=== PATIENT | female | born 1930 | race African-American/Black ===

== ENCOUNTER 2017-08-23 16:35 | Observation (INO) ==
--- NOTE | 2017-08-23 16:57 | ED ---
HPI General Chief Complaint: Chest Pain Stated Complaint: Chest pain Time Seen by Provider: 08/23/17 16:44 Source: patient Mode of arrival: EMS Limitations: no limitations History of Present Illness HPI narrative: The patient is a 86-year-old female who presents to the emergency department from her physician's office, [place] [facility] , for chest pain. The patient states she was awakened this morning, unknown time, with chest pain. The chest pain is left-sided, radiates to the left jaw and down the left arm, described as pressure, with diaphoresis. The patient denied any shortness of breath, nausea, or vomiting. The patient does have a history of hypertension and hyperlipidemia. She denies any known history of coronary artery disease use, or early family medical history for heart disease. The patient's symptoms are moderate. 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 The patient took the bus to her physician's office, was evaluated and had an EKG performed. The patient was then administered 2 nitroglycerin sublingual and had a nitro patch applied to the left chest wall which resolved her pain. Upon arrival she is chest pain-free. The patient states aspirin irritates her stomach, however, she does not have a true allergy to aspirin. MD complaint: chest pain Complete Quality Measures for STEMI Alert Patients STEMI Alert: No Onset (ago): hour(s) Duration: constant Onset: during rest and during exertion Pain location: left chest Severity: moderate Severity scale (1-10): 5 Quality: heaviness Pain radiation: neck Relieving factors: nitroglycerin Exacerbating factors: nothing Associated symptoms: diaphoresis Treatments prior to arrival chest pain: nitroglycerin Related Data On Oral Contraceptives: No Home Medications Medication Instructions Recorded Confirmed amlodipine [Norvasc] 10 mg PO DAILY 08/23/17 08/23/17 hydrochlorothiazide 25 mg PO DAILY 08/23/17 08/23/17 pantoprazole 20 mg PO DAILY 08/23/17 08/23/17 rosuvastatin [Crestor] 20 mg PO HS 08/23/17 08/23/17 Allergies Allergy/AdvReac Type Severity Reaction Status Date / Time No Known Allergies Allergy Uncoded 01/20/16 13:47 Review of Systems Except as stated in HPI: all other systems reviewed are negative ENT Denies dizziness Cardiovascular Reports chest pain, Reports chest pain at rest, Reports chest pain with activity , Reports diaphoresis, Denies lightheadedness and Denies dyspnea Respiratory Denies cough and Denies dyspnea Gastrointestinal Denies abdominal pain, Denies nausea and Denies vomiting [facility] Medical History Medical History Acute arthritis (Acute) H/O: hysterectomy (Acute) Hyperlipidemia (Acute) Hypertension (Acute) Social History Social History Substance History: No History of Abuse Smoking Status: Former smoker Tobacco Type: Smokeless Tobacco How Often Do You Have a Drink Containing Alcohol: Never Recent Travel in [facility] within the Last 8 Weeks: No Recent Out of Country Travel within the Last 8 Weeks: No Exam Narrative Exam Narrative: GENERAL: Awake, alert, very pleasant 86-year-old female who appears her stated age and is in no acute respiratory distress. SKIN: Focused skin assessment warm/dry. HEAD: Atraumatic. Normocephalic. EYES: No injection or drainage. ENT: No nasal bleeding or discharge. Mucous membranes pink and moist. NECK: Trachea midline. No JVD. CARDIOVASCULAR: Regular rate and rhythm. No murmur appreciated. Patient has a nitro patch applied to left chest wall. Palpation of the surrounding area does not reproduce symptoms. RESPIRATORY: No accessory muscle use. Clear to auscultation. Breath sounds equal bilaterally. GASTROINTESTINAL: Abdomen soft, non-tender, nondistended. No rebound tenderness , guarding, rigidity. No epigastric tenderness noted. MUSCULOSKELETAL: No obvious deformities. No clubbing. No cyanosis. No edema. NEUROLOGICAL: Awake and alert. No obvious cranial nerve deficits. Motor grossly within normal limits. Normal speech. Nonfocal. PSYCHIATRIC: Appropriate mood and affect; insight and judgment normal. Course Initial Documented Vital Signs Temperature 98.1 F 08/23/17 16:44 Pulse Rate 85 08/23/17 16:44 Respiratory Rate 18 08/23/17 16:44 Blood Pressure 173/82 H 08/23/17 16:44 Pulse Oximetry 97 08/23/17 16:44 Last Documented Vital Signs Temperature 98.1 F 08/23/17 16:44 Pulse Rate 76 08/23/17 16:49 Respiratory Rate 17 08/23/17 16:49 Blood Pressure 147/66 H 08/23/17 16:49 Pulse Oximetry 96 08/23/17 16:50 Medical Decision Making MDM Narrative Medical decision making narrative: IV was established, labs are drawn and sent, and the patient was placed on cardiac telemetry monitoring and continuous pulse oximetry monitoring. EKG was ordered and interpreted. Chest x-ray was obtained. The patient was administered aspirin 162 mg orally. The patient is chest pain-free and already has a nitro patch applied, therefore, no Nitropaste was applied. The patient's chest x-ray is unremarkable. Initial troponin is less than 0.02. The patient will be a 23 hour observation to the chest pain center for serial cardiac enzymes and further evaluation by cardiology for possible stress test. The patient is comfortable with this plan of care and disposition. Differential Diagnosis Differential Diagnosis: Differential diagnosis includes acute coronary syndrome , STEMI, costochondritis, pericarditis, myocarditis, dissection, GERD, esophageal spasm, pulmonary embolism. Lab Data Lab results narrative: The patient's initial troponin is less than 0.02. Result diagrams: 08/23/17 16:55 08/23/17 16:55 Lab Results 08/23/17 08/23/17 08/23/17 Range/Units 16:55 16:55 16:55 WBC 8.9 (4.0-11.0) th/mm3 RBC 4.80 (4.00-5.30) mil/mm3 Hgb 12.2 (11.6-15.3) gm/dL Hct 37.2 (35.0-46.0) % MCV 77.5 L (80.0-100.0) fL MCH 25.4 L (27.0-34.0) pg MCHC 32.7 (32.0-36.0) % RDW 14.4 (11.6-17.2) % Plt Count 332 (150-450) th/mm3 MPV 8.5 (7.0-11.0) fL Neut % (Auto) 63.3 (16.0-70.0) % Lymph % (Auto) 26.5 (9.0-44.0) % Graham % (Auto) 7.8 (0.0-8.0) % Eos % (Auto) 1.8 (0.0-4.0) % Baso % (Auto) 0.6 (0.0-2.0) % Neut # (Auto) 5.7 (1.8-7.7) th/mm3 Lymph # (Auto) 2.4 (1.0-4.8) th/mm3 Graham # (Auto) 0.7 (0.0-0.9) th/mm3 Eos # (Auto) 0.2 (0.0-0.4) th/mm3 Baso # (Auto) 0.1 (0.0-0.2) th/mm3 WBC Differential . Differential Comment Auto diff final PT (9.8-11.6) sec INR Ratio APTT (24.3-30.1) sec Sodium (136-145) meq/L Potassium (3.5-5.1) meq/L Chloride (98-107) meq/L Carbon Dioxide (21.0-32.0) meq/L Anion Gap (5-15) meq/L BUN (7-18) mg/dL Creatinine (0.50-1.00) mg/dL Estimated GFR (>89) mL/min Random Glucose (74-106) mg/dL Calcium (8.5-10.1) mg/dL Magnesium (1.5-2.5) mg/dL Total Bilirubin (0.2-1.0) mg/dL AST (15-37) U/L ALT (10-53) U/L Alkaline Phosphatase (45-117) U/L Total Creatine Kinase (26-192) U/L Troponin I (0.02-0.05) ng/mL B-Natriuretic Peptide 32 (0-100) pg/mL Total Protein (6.4-8.2) g/dL Albumin (3.4-5.0) g/dL Lipase 91 (73-393) U/L 08/23/17 08/23/17 Range/Units 16:55 16:55 WBC (4.0-11.0) th/mm3 RBC (4.00-5.30) mil/mm3 Hgb (11.6-15.3) gm/dL Hct (35.0-46.0) % MCV (80.0-100.0) fL MCH (27.0-34.0) pg MCHC (32.0-36.0) % RDW (11.6-17.2) % Plt Count (150-450) th/mm3 MPV (7.0-11.0) fL Neut % (Auto) (16.0-70.0) % Lymph % (Auto) (9.0-44.0) % Graham % (Auto) (0.0-8.0) % Eos % (Auto) (0.0-4.0) % Baso % (Auto) (0.0-2.0) % Neut # (Auto) (1.8-7.7) th/mm3 Lymph # (Auto) (1.0-4.8) th/mm3 Graham # (Auto) (0.0-0.9) th/mm3 Eos # (Auto) (0.0-0.4) th/mm3 Baso # (Auto) (0.0-0.2) th/mm3 WBC Differential Differential Comment PT 10.4 (9.8-11.6) sec INR 1.0 Ratio APTT 26.1 (24.3-30.1) sec Sodium 142 (136-145) meq/L Potassium 4.0 (3.5-5.1) meq/L Chloride 110 H (98-107) meq/L Carbon Dioxide 21.6 (21.0-32.0) meq/L Anion Gap 10 (5-15) meq/L BUN 18 (7-18) mg/dL Creatinine 0.93 (0.50-1.00) mg/dL Estimated GFR 69 L (>89) mL/min Random Glucose 73 L (74-106) mg/dL Calcium 8.7 (8.5-10.1) mg/dL Magnesium 2.0 (1.5-2.5) mg/dL Total Bilirubin 0.5 (0.2-1.0) mg/dL AST 26 (15-37) U/L ALT 26 (10-53) U/L Alkaline Phosphatase 86 (45-117) U/L Total Creatine Kinase 160 (26-192) U/L Troponin I Less than 0.02 L (0.02-0.05) ng/mL B-Natriuretic Peptide (0-100) pg/mL Total Protein 7.9 (6.4-8.2) g/dL Albumin 3.6 (3.4-5.0) g/dL Lipase (73-393) U/L Imaging Data Radiologist's impression: ITS Impressions Chest X-Ray 08/23/17 16:45 CONCLUSION: No acute cardiopulmonary process. ECG Data EKG Prior to Arrival: Yes Attestation: I personally reviewed and interpreted this ECG as follows: Interpretation: EKG reveals normal sinus rhythm with a rate of 75. No ischemic changes or ectopy noted. Discharge Plan Discharge Disposition Patient Disposition: 30 Still Patient Discharge Condition Condition: Stable Discharge Details Diagnosis: Chest pain Physicians Team ED Provider: Shawn Vega Primary Care Provider: UNKNOWN, Rxs /Orders / Referrals /Forms Prescriptions: No Action pantoprazole 20 mg Tablet,Delayed Release (Dr/Ec) 20 mg PO DAILY RF: 0 amlodipine [Norvasc] 10 mg Tablet 10 mg PO DAILY RF: 0 hydrochlorothiazide 25 mg Tablet 25 mg PO DAILY RF: 0 rosuvastatin [Crestor] 20 mg Tablet 20 mg PO HS RF: 0 Discharge Instructions Patient Printed Instructions: Chest Pain (ED) Discharge Interventions Interventions: Vital Signs Last Done: 08/23/17 16:49 Status ED Status: With Doctor
[2017-08-23 17:23] LABS: Baso # (Auto) 0.1 th/mm3 (0.0-0.2); Baso % (Auto) 0.6 % (0.0-2.0); Eos # (Auto) 0.2 th/mm3 (0.0-0.4); Eos % (Auto) 1.8 % (0.0-4.0); Hematocrit 37.2 % (35.0-46.0); Hemoglobin 12.2 gm/dL (11.6-15.3); Lymph # (Auto) 2.4 th/mm3 (1.0-4.8); Lymph % (Auto) 26.5 % (9.0-44.0); Mean Corpuscular HGB Conc 32.7 % (32.0-36.0); Mean Corpuscular Hemoglobin 25.4 pg (27.0-34.0); Mean Corpuscular Volume 77.5 fL (80.0-100.0); Mean Platelet Volume 8.5 fL (7.0-11.0); Mono # (Auto) 0.7 th/mm3 (0.0-0.9); Mono % (Auto) 7.8 % (0.0-8.0); Neut # (Auto) 5.7 th/mm3 (1.8-7.7); Neut % (Auto) 63.3 % (16.0-70.0); Platelet Count 332 th/mm3 (150-450); Red Cell Distribution Width 14.4 % (11.6-17.2); White Blood Count 8.9 th/mm3 (4.0-11.0)
--- NOTE | 2017-08-23 17:24 | XR ---
EXAM DATE: 08/23/2017 5:19 PM EDT AGE/SEX: 86 years / Female INDICATIONS: Left sided chest pain. CLINICAL DATA: This is the patient's initial encounter. Patient reports that signs and symptoms have been present for 1 day and indicates a pain score of 6/10. MEDICAL/SURGICAL HISTORY: None. None. COMPARISON: [facility], CHEST PA & LAT, 06/05/2010. . FINDINGS: A single AP view of the chest demonstrates the lungs to be symmetrically aerated without evidence of mass, infiltrate or effusion. The cardiomediastinal contours are unremarkable. Osseous structures a re intact. CONCLUSION: No acute cardiopulmonary process. Electronically signed by: Johnnie Escobar MD 08/23/2017 5:23 PM EDT
[2017-08-23 17:44] LABS: Activated Partial Thrombo Time 26.1 sec (24.3-30.1); Prothrombin Time 10.4 sec (9.8-11.6)
[2017-08-23 18:13] LABS: Alanine Aminotransferase 26 U/L (10-53); Albumin 3.6 g/dL (3.4-5.0); Alkaline Phosphatase 86 U/L (45-117); Anion Gap 10 meq/L (5-15); Aspartate Aminotransferase 26 U/L (15-37); Blood Urea Nitrogen 18 mg/dL (7-18); Calcium 8.7 mg/dL (8.5-10.1); Carbon Dioxide 21.6 meq/L (21.0-32.0); Chloride 110 meq/L (98-107); Creatine Kinase 160 U/L (26-192); Glomerular Filtration Rate 69 mL/min (>89); Glucose,Random 73 mg/dL (74-106); Sodium 142 meq/L (136-145); Total Protein 7.9 g/dL (6.4-8.2)
[2017-08-23] MEDS ORDERED: Morphine Inj 4 MG/ML Vial IV.PUSH PRN (18:24)
[2017-08-23] MEDS ORDERED: Acetaminophen 500 MG Tablet PO PRN (18:24)
[2017-08-23 18:28] LABS: Creatine Kinase MB 2.4 ng/mL (0.5-3.6)
[2017-08-23 22:45] LABS: Creatine Kinase 190 U/L (26-192)
[2017-08-24] MEDS ORDERED: Aspirin 325 MG Tablet PO SCH (09:00)
--- NOTE | 2017-08-24 09:32 | P.HPCA ---
History of Present Illness Primary Care Physician: UNKNOWN Chief Complaint: Chest pain History of Present Illness: This is an 87-year-old female with history of hypertension, hyperlipidemia, and GERD the presents to ED after being evaluated at her PCP office for chest discomfort. States that began yesterday morning. Has a hard time describing how long it lasted but states is more than an hour. She was given sublingual nitroglycerin at the PCP office which resolved her discomfort. States the discomfort has not recurred. Denies history of CAD but cannot recall having a cardiac workup in the past. There was a left-sided discomfort that radiated to left jaw and into the left arm. Described as a pressure. She is also diaphoretic with the symptoms. Denies shortness of breath or nausea. Has not had symptoms like this in the past. Denies recent illness. Voices compliance with medication. Patient is a non-smoker. Denies family history of CAD. - Diagnosis (1) Chest pain (2) Hypertension (3) Hyperlipidemia (4) GERD (gastroesophageal reflux disease) Inpatient Certification: I certify that the inpatient services were ordered in accordance with Medicare regulations governing the order. This includes certification that hospital inpatient services are reasonable and necessary and in the case of services not specified as inpatient-only under 42 CFR 419.22(n), that they are appropriately provided as inpatient services in accordance to with the 2-midnight benchmark under 43 CFR 412.3(e) Review of Systems General: Patient denies fevers, chills, and recent travel. HEENT: Patient denies headache, sore throat, difficulty swallowing. Cardiovascular: Has the chest discomfort as mentioned above. Denies sensation of heart beating rapidly or irregularly. No syncope. She was diaphoretic. Respiratory: Denies shortness of breath or inspirational chest discomfort. Denies coughing wheezing or hemoptysis. GI: Patient denies nausea, vomiting, diarrhea, abdominal pain, bloody stools. Musculoskeletal: Patient denies joint pain or edema. Denies calf pain or edema. Neurovascular: Patient denies numbness, tingling, weakness in extremities. Denies headache. Endocrine: Denies polyuria and polydipsia. Hematologic: Denies easy bruising. Skin: Denies rash or itching. PMFSH - History History Provided By: Patient - Medical History Medical History: Medical History (Last Reviewed 08/24/17 @ 09:28 by KERA Ashraf) Acute arthritis H/O: hysterectomy Hyperlipidemia Hypertension - Tobacco History Second Hand Smoke Exposure: No Smoking Status: Never smoker Tobacco Type: Smokeless Tobacco - Alcohol History How Often Do You Have a Drink Containing Alcohol: Never - Substance Use History Substance History: No History of Abuse - Travel History Recent Travel in the [facility] Within the Last 8 Weeks: No Recent Travel Out of the Country Within the Last 8 Weeks: No - Immunization History Tetanus Immunization: <5 Years Medications and Allergies Active Medications: Active Medications Acetaminophen (Tylenol) 500 mg PO Q4H PRN PRN Reason: HEADACHE Aspirin (Aspirin) 325 mg PO DAILY [facility] Last Admin: 08/24/17 08:07 Dose: 325 mg Morphine Sulfate (Morphine Inj) 2 mg IV.PUSH Q4H PRN PRN Reason: PAIN SCALE 8 TO 10 Nitroglycerin (Nitrostat Sl) 0.4 mg SL Q5M PRN PRN Reason: CHEST PAIN Ondansetron HCl (Zofran Inj) 4 mg IV.PUSH Q6H PRN PRN Reason: NAUSEA Sodium Chloride (Ns Flush) 2 ml IV.FLUSH UNSCH PRN PRN Reason: FLUSH AFTER USING IV ACCESS Sodium Chloride (Ns Flush) 2 ml IV.FLUSH BID [facility] Last Admin: 08/24/17 08:08 Dose: 2 ml Sodium Chloride (Ns Flush) 2 ml IV.FLUSH PRN PRN PRN Reason: FLUSH AFTER USING IV ACCESS Allergies Allergy/AdvReac Type Severity Reaction Status Date / Time No Known Allergies Allergy Uncoded 01/20/16 13:47 Home Medications Medication Instructions Recorded Confirmed Type amlodipine [Norvasc] 10 mg PO DAILY 08/23/17 08/23/17 History hydrochlorothiazide 25 mg PO DAILY 08/23/17 08/23/17 History pantoprazole 20 mg PO DAILY 08/23/17 08/23/17 History rosuvastatin [Crestor] 20 mg PO HS 08/23/17 08/23/17 History Exam Vital signs: Vital Signs 08/23/17 16:44 08/23/17 16:49 08/23/17 16:50 Temperature 98.1 F Pulse Rate 85 76 Respiratory Rate 18 17 Blood Pressure 173/82 H 147/66 H Pulse Oximetry 97 97 96 08/23/17 18:00 08/23/17 18:52 08/23/17 20:00 Temperature 97.7 F Pulse Rate 63 73 Respiratory Rate 19 16 Blood Pressure 130/64 140/66 Pulse Oximetry 97 96 97 08/23/17 23:42 08/24/17 00:00 08/24/17 02:10 Temperature 97.1 F L Pulse Rate 74 55 L Respiratory Rate 20 Blood Pressure 122/56 L Pulse Oximetry 97 93 L 08/24/17 04:00 08/24/17 07:52 Temperature 97.8 F 98.1 F Pulse Rate 50 L 56 L Respiratory Rate 16 17 Blood Pressure 105/63 112/55 L Pulse Oximetry 97 96 Intake & Output 08/23/17 08/24/17 08/24/17 18:59 06:59 18:59 Intake Total 500 / 500 Balance 500 / 500 Weight 69.4 kg Intake: Oral 500 / 500 Other: # Voids 2 Narrative: GENERAL: This is a well-nourished, well-developed patient, in no apparent distress. Patient speaks in clear complete sentences. Patient is pleasant. HEENT: Head is atraumatic and normocephalic. Neck is supple without lymphadenopathy and trachea is midline. No JVD or carotid bruits. CARDIOVASCULAR: Regular rate and rhythm without murmurs, gallops, or rubs. RESPIRATORY: Clear to auscultation. Breath sounds equal bilaterally. No wheezes , rales, or rhonchi. Chest wall is nontender. No use of accessory muscles. GASTROINTESTINAL: Abdomen is nontender, nondistended. Abdomen soft. No obvious pulsatile mass or bruit. No CVA tenderness. Strong femoral pulses bilaterally. Normal bowel sounds in all quadrants. MUSCULOSKELETAL: Patient is moving upper and lower extremities freely. No calf tenderness or edema, no Homans sign. Strong pulses in upper and lower extremities. NEUROLOGICAL: Patient is alert and oriented. Cranial nerves 2-12 are grossly intact. No focal deficits and speech is clear. SKIN: No rash and turgor is normal. Results 08/23/17 16:55 08/23/17 16:55 Cardiac Enzymes 18 08/23/17 08/23/17 Range/Units 16:55 16:55 21:45 AST 26 (15-37) U/L CK-MB (CK-2) 2.4 (0.5-3.6) ng/mL Troponin I Less than 0.02 L Less than 0.02 L (0.02-0.05) ng/mL B-Natriuretic Peptide 32 (0-100) pg/mL 08/24/17 Range/Units 00:50 AST (15-37) U/L CK-MB (CK-2) (0.5-3.6) ng/mL Troponin I Less than 0.02 L (0.02-0.05) ng/mL B-Natriuretic Peptide (0-100) pg/mL Coagulation 08/23/17 08/23/17 Range/Units 16:55 16:55 PT 10.4 (9.8-11.6) sec APTT 26.1 (24.3-30.1) sec B-Natriuretic Peptide 32 (0-100) pg/mL CBC 08/23/17 Range/Units 16:55 WBC 8.9 (4.0-11.0) th/mm3 RBC 4.80 (4.00-5.30) mil/mm3 Hgb 12.2 (11.6-15.3) gm/dL Hct 37.2 (35.0-46.0) % Plt Count 332 (150-450) th/mm3 Neut # (Auto) 5.7 (1.8-7.7) th/mm3 Lymph # (Auto) 2.4 (1.0-4.8) th/mm3 Baker # (Auto) 0.7 (0.0-0.9) th/mm3 Eos # (Auto) 0.2 (0.0-0.4) th/mm3 Baso # (Auto) 0.1 (0.0-0.2) th/mm3 Comprehensive Metabolic Panel 08/23/17 Range/Units 16:55 Sodium 142 (136-145) meq/L Potassium 4.0 (3.5-5.1) meq/L Chloride 110 H (98-107) meq/L Carbon Dioxide 21.6 (21.0-32.0) meq/L BUN 18 (7-18) mg/dL Creatinine 0.93 (0.50-1.00) mg/dL Calcium 8.7 (8.5-10.1) mg/dL AST 26 (15-37) U/L ALT 26 (10-53) U/L Alkaline Phosphatase 86 (45-117) U/L Total Protein 7.9 (6.4-8.2) g/dL Albumin 3.6 (3.4-5.0) g/dL Intake and Output 08/23/17 08/24/17 08/24/17 22:59 06:59 14:59 Intake Total 500 / 500 Balance 500 / 500 Intake: Oral 500 / 500 Other: # Voids 2 Weight 69.4 kg EKG interpretations - EKG EKG shows: sinus rhythm (EKGs are sinus rhythm without significant ST segment depressions or elevations.) Caprini VTE Risk Assessment Caprini VTE Risk Assessment: Moderate/High Risk (score >= 2) Caprini Risk Assessment Model: Point Value = 1 Point Value = 2 Point Value = 3 Point Value = 5 Age 41-60 Minor surgery BMI > 25 kg/m2 Swollen legs Varicose veins or History of unexplained or recurrent spontaneous Oral contraceptives or hormone replacement Sepsis (< 1 month) Serious lung disease, including pneumonia (< 1 month) Abnormal pulmonary function Acute myocardial infarction Congestive heart failure (< 1 month) History of inflammatory bowel disease Medical patient at bed rest Age 61-74 Arthroscopic surgery Major open surgery (> 45 min) Laparoscopic surgery (> 45 min) Malignancy Confined to bed (> 72 hours) Immobilizing plaster cast Central venous access Age >= 75 History of VTE Family history of VTE Factor V Leiden Prothrombin [id number] Lupus anticoagulant Anticardiolipin antibodies Elevated serum homocysteine Heparin-induced thrombocytopenia Other congenital or acquired thrombophilia Stroke (< 1 month) Elective arthroplasty Hip, pelvis, or leg fracture Acute spinal cord injury (< 1 month) Prophylaxis Regimen: Total Risk Factor Score Risk Level Prophylaxis Regimen 0-1 Low Early ambulation 2 Moderate Order ONE of the following: *Sequential Compression Device (SCD) *Heparin 5000 units SQ BID 3-4 Higher Order ONE of the following medications: *Heparin 5000 units SQ TID *Enoxaparin/Lovenox 40 mg SQ daily (WT < 150 kg, CrCl > 30 mL/min) *Enoxaparin/Lovenox 30 mg SQ daily (WT < 150 kg, CrCl > 10-29 mL/min) *Enoxaparin/Lovenox 30 mg SQ BID (WT < 150 kg, CrCl > 30 mL/min) AND/OR *Sequential Compression Device (SCD) 5 or more Highest Order ONE of the following medications: *Heparin 5000 units SQ TID (Preferred with Epidurals) *Enoxaparin/Lovenox 40 mg SQ daily (WT < 150 kg, CrCl > 30 mL/min) *Enoxaparin/Lovenox 30 mg SQ daily (WT < 150 kg, CrCl > 10-29 mL/min) *Enoxaparin/Lovenox 30 mg SQ BID (WT < 150 kg, CrCl > 30 mL/min) AND *Sequential Compression Device (SCD) Assessment and Plan - Assessment (1) Chest pain Code(s): R07.9 - Chest pain, unspecified Status: Acute (2) Hypertension Code(s): I10 - Essential (primary) hypertension Status: Acute (3) Hyperlipidemia Code(s): E78.5 - Hyperlipidemia, unspecified Status: Acute (4) GERD (gastroesophageal reflux disease) Code(s): K21.9 - Gastro-esophageal reflux disease without esophagitis Status: Acute - Plan * Chest pain: Patient has had serial cardiac enzymes and EKGs for ruling out purposes. She has been seen by Dr. Kun Joseph of cardiology in the chest pain center. She will undergo a Lexiscan. Patient be discharged home if her stress test is nonischemic with instructions to follow-up with PCP. Return to ED for interval issues. * Hypertension: Continue medication. * Hyperlipidemia: Continue medication. * GERD: Continue medication. Patient is stable at this time. She is agreeable to this plan. H&P: Quality - VTE Deep Vein Thrombosis/Pulmonary Embolism Present on Admission: No (1) Chest pain Qualifiers: Chest pain type: unspecified Qualified Code(s): R07.9 - Chest pain, unspecified
[2017-08-24] MEDS ORDERED: Regadenoson Inj 0.4 MG/5 ML Syringe IV.PUSH ONE (10:10)
[2017-08-24] MEDS ORDERED: hydroCHLOROthiazide 25 MG Tablet PO SCH (11:15)
[2017-08-24] MEDS ORDERED: Pantoprazole Sodium 20 MG DR Tablet PO SCH (11:15)
--- NOTE | 2017-08-24 11:17 | NM ---
EXAM DATE: 08/24/2017 11:12 AM EDT AGE/SEX: 87 years / Female INDICATIONS:Angina. . Left sided chest pain for one day. CLINICAL DATA: This is the patient's initial encounter. Patient reports that signs and symptoms have been present for 1 day and indicates a pain score of 5/10. MEDICAL/SURGICAL HISTORY: Hypertension. Hysterectomy. COMPARISON: No prior exams available for comparison. No external comparison. DOSE: 8.8 mCi Tc 99m Myoview at rest 26.9 mCi [id number] at stress 0.4 mg Lexiscan STRESS SYMPTOMS: None. EJECTION FRACTION: 64 % TECHNIQUE: The patient underwent pharmacologic stress with infusion of prescribed dose. Continuous ECG tracing was monitored during stress. Gated SPECT imaging was performed after stress and conventi onal SPECT imaging was performed at rest. The examination was performed on a SPECT/CT scanner, both attenuation and non-corrected datasets were reviewed. FINDINGS: Distribution: The maximum perfused segment at stress is in the septum and lateral wall. Perfusion Study: The pattern of perfusion at stress is within normal limits. Gated Study: There are intact wall motion and wall thickening without hypokinetic or dyskinetic segm ents. The ejection fraction is calculated at 64%. RISK CATEGORY: Low (<1% Annual Motality Rate) CONCLUSION: 1. Negative for stress-induced ischemia. Electronically signed by: Sony Salter MD 08/24/2017 11:16 AM EDT
--- NOTE | 2017-08-24 14:14 | ECG ---
Date Performed: 08/23/2017 Time Performed: 16:54:12 PTAGE: 86 years EKG: Sinus rhythm NORMAL ECG NO PREVIOUS TRACING DOCTOR: Kun Joseph Interpretating Date/Time 08/24/2017 14:12:56
[2017-08-25] MEDS ORDERED: amLODIPine 10 MG Tablet PO SCH (09:00)
--- NOTE | 2017-08-28 16:46 | ECG ---
Date Performed: 08/24/2017 Time Performed: 00:58:44 PTAGE: 87 years EKG: SINUS BRADYCARDIA WITH FIRST DEGREE AV BLOCK WITH OCCASIONAL SUPRAVENTRICULAR PREMATURE COM PLEXES ABNORMAL ECG PREVIOUS TRACING : 08/23/2017 21.31 Since previous tracing, no significant change noted DOCTOR: Kun Joseph Interpretating Date/Time 08/28/2017 16:45:37
--- NOTE | 2017-09-13 14:09 | ECG ---
Date Performed: 08/23/2017 Time Performed: 21:31:39 PTAGE: 86 years EKG: Sinus rhythm WITH OCCASIONAL SUPRAVENTRICULAR PREMATURE COMPLEXES BORDERLINE ECG PREVIOUS TRACING : 08/23/2017 16.54 Since previous tracing, no significant change noted DOCTOR: Kun Joseph Interpretating Date/Time 09/13/2017 14:08:44
--- NOTE | 2017-11-13 13:23 | TR ---
Date Performed: 08/24/2017 Time Performed: 10:21:00 DOCTOR: Kun Joseph DRUG LIST: CLINICAL HISTORY: REASON FOR TEST: REASON FOR ENDING: OBSERVATION: CONCLUSION: COMMENTS: Lexiscan stress test was performed under standard four minute protocol. Radionuclide was injected one minute prior to ending the test. No electrocardiographic abormalities were present t o suggest ischemia. Nuclear imaging and interpretation are pending.
== END 2017-08-24 15:16 | disposition home or self-care (01) ==
LOC: NEDA 16:35 → NEPFCDU 16:35 → NEPC 16:35 → NEPFCDU 20:20
PROVIDERS: ADMIT Internal Medicine Cardiovascular Disease; ATTEND Internal Medicine Cardiovascular Disease
DX: Z87.891 Personal history of nicotine dependence; K21.9 Gastro-esophageal reflux disease without esophagitis; Z79.82 Long term (current) use of aspirin; I10 Essential (primary) hypertension; E78.5 Hyperlipidemia, unspecified; Z79.899 Other long term (current) drug therapy; R61 Generalized hyperhidrosis; R07.89 Other chest pain